=== PATIENT | male | born 1995 | race Caucasian/White ===

== ENCOUNTER 2018-02-24 14:02 | Emergency (ER) | payer OTHER ==
[2018-02-24] MEDS ORDERED: CYCLOBENZAPRINE 10 MG TAB PO ONE (15:00)
[2018-02-24] MEDS ORDERED: DEXAMETHASONE 4 MG TAB PO ONE (15:00)
[2018-02-24] MEDS ORDERED: OXYCODONE/APAP 5/325 TAB PO ONE (15:00)
--- NOTE | 2018-02-24 15:00 | EDPHY ---
General Time Seen by Provider: 02/24/18 14:48 Narrative: CHIEF COMPLAINT: Low back pain HISTORY OF PRESENT ILLNESS: Patient presents with complaints of low back pain that started while skating at a skate park today approximately 90 minutes ago. He states that he twisted awkwardly and felt a sudden onset of pain in the lower back. Severe pain that has been constant and making ambulation difficult due to pain. Radiates into right buttock and anterior thigh. No numbness, paresthesia, weakness, incontinence. No direct trauma. Previous incidents of this several times in the past with spontaneous resolution. No prior lumbar surgeries. Has been seen by chiropractors in the past. No other associate complaints or modifying factors. ESTABLISHED ORTHOPEDIST: None REVIEW OF SYSTEMS: Ten systems reviewed and are negative unless otherwise noted in the HPI PAST MEDICAL HISTORY: Low back strains PAST SURGICAL HISTORY: No recent surgery SOCIAL HISTORY: non smoker. recently graduated college. lives here independently FAMILY HISTORY: non-contributory EXAMINATION General Appearance: Alert, no distress HEENT: normocephalic and atraumatic. PERRL Cardiovascular: Pulses normal throughout with symmetric radial and DP pules. Brisk cap refill Back: no midline tenderness at any level. lumbar soft tissue tenderness right of midline Neurological: A&O, sensory symmetric, knee, ankle and great toe strength symmetric. patellar reflexes 2+ symmetrically Skin: Warm and dry, no rash. no petechia. no puncture or laceration Extremities: Nontender, no pedal edema Psychiatric: Mood and affect normal DIFFERENTIAL DIAGNOSES: Including but not limited to disc bulge, disc herniation, lumbar fracture, lumbar strain, acute cord compression, spondylolisthesis MDM: 3:00 p.m. Acute low back pain with right-sided sciatic pain. Radiculopathy to the point of the anterior thigh only. No evidence of acute cord compression or cauda equina. Fully neuro intact distally with excellent strength of the great toe and ankles. I have ordered x-ray due to the trauma to the pain. I have ordered Flexeril and pain medication in addition to Decadron 3:45 p.m. Patient re-evaluated. He just received his medication. I reviewed the x-ray and I do not appreciate any acute findings 4:30 p.m. plain film read as negative by radiologist. patient re evaluated and feeling much better. ambulating without difficulty. would like to go home. discharged home in stable condition with referral information, symptomatic medications, back exercises and ED precautions. His mother will drive him home. SUPERVISION: This patient was independently evaluated without direct involvement of or examination by the attending physician. ED Precautions: Worsening pain. Erythema, edema, cyanosis, pallor, paresthesia or anesthesia. - History Smoking Status: Never smoked - Objective Vital Signs: Initial Vital Signs Temperature (C) 98.1 F 02/24/18 14:07 Heart Rate 80 02/24/18 14:07 Respiratory Rate 16 02/24/18 14:07 Blood Pressure 133/78 H 02/24/18 14:07 O2 Sat (%) 96 02/24/18 14:07 O2 Delivery Mode Room Air Allergies/Adverse Reactions: No Known Allergies Allergy (Unverified 02/24/18 14:07) Home Medications: Medication Instructions Recorded Cyclobenzaprine [Flexeril 10 MG 10 mg PO TID PRN #7 tab 02/24/18 (*)] Ibuprofen 02/24/18 methylPREDNISolone [Medrol Dose 1 each PO AD #1 packet 02/24/18 Arrno] oxyCODONE HCL/ACETAMINOPHEN 1 each PO Q4-6PRN PRN #7 tablet 02/24/18 [Percocet 5-325 mg Tablet] Medications Given: Discontinued Medications Cyclobenzaprine HCl (Flexeril) 10 mg PO EDNOW ONE Stop: 02/24/18 15:01 Last Admin: 02/24/18 15:23 Dose: 10 mg Dexamethasone (Decadron) 8 mg PO EDNOW ONE Stop: 02/24/18 15:01 Last Admin: 02/24/18 15:22 Dose: 8 mg Oxycodone/Acetaminophen (Percocet 5/325) 2 tab PO EDNOW ONE Stop: 02/24/18 15:01 Last Admin: 02/24/18 15:23 Dose: 2 tab Departure - Departure Disposition: Home, Routine, Self-Care Clinical Impression: Lumbar radiculopathy, acute Acute low back pain Qualifiers: Back pain laterality: right Sciatica presence: with sciatica Sciatica laterality: sciatica of right side Qualified Code(s): M54.41 - Lumbago with sciatica, right side Condition: Good Instructions: Sciatica (ED), Lumbar Radiculopathy (ED), Lower Back Exercises ( ED) Additional Instructions: 1. Medications as prescribed to completion 2. Contact primary care physician as provided to established as a new patient 3. Contact neurosurgeon on-call for outpatient follow-up for back pain 4. ED precautions for worsening pain, weakness, numbness, incontinence of bowel or bladder Referrals: Juan Carlos Mondragon MD [Medical Doctor] - As per Instructions Tian Nettles MD [Medical Doctor] - As per Instructions Stand Alone Forms: Airline Excuse Prescriptions: Cyclobenzaprine [Flexeril 10 MG (*)] 10 mg PO TID PRN #7 tab PRN Reason: Spasms methylPREDNISolone [Medrol Dose Arron] 1 each PO AD #1 packet oxyCODONE HCL/ACETAMINOPHEN [Percocet 5-325 mg Tablet] 1 each PO Q4-6PRN PRN #7 tablet PRN Reason: Pain, Breakthrough
[2018-02-24 17:07] VITALS: BP 134/74
== END 2018-02-24 17:02 | disposition home or self-care (01) ==
DX: M54.41 Lumbago with sciatica, right side (principal); M54.16 Radiculopathy, lumbar region

== ENCOUNTER 2018-04-11 14:14 | Emergency (ER) | payer OTHER ==
--- NOTE | 2018-04-11 14:35 | EDPHY ---
HPI/HX/ROS/PE/MDM Narrative: CHIEF COMPLAINT: Nose bleed HPI: The patient is a 22 y/o male with a history of frequent nose bleeds complaining of a nose bleed for the past 3-4 hours. He has had frequent nose bleeds since he was 2 years old, which his ENT physician believes is due to a mildly deviated septum and superficial blood vessels. On Thursday, 2 days ago, his right nares was cauterized by his ENT in [place] as he was having a nose bleed every day for the past week. Today he woke up at 04:00, 10 hours ago, with a nose bleed but he was able to stop this. Around 3-4 hours ago he was on a bike ride when the nose bleed returned; he denies recently injuring his nose. He noticed that blood was coming from both nares and was more intense than prior nose bleeds as his bike was covered in blood. Currently he is lightheaded and nauseous. Denies history of lab work to determine clotting disorders or history of other bleeding problems. His father has essential thrombocytopenia which has progressed to myelofibrosis. Denies headache, chest pain, shortness of breath, urinary or bowel complaints, fever, numbness, paresthesias. REVIEW OF SYSTEMS: Aside from elements discussed in the HPI, a comprehensive 10-point review of systems was reviewed and is negative. PMH: Frequent nose bleeds requiring cauterization SOCIAL HISTORY: Parents at bedside, employed, lives in [place] PHYSICAL EXAM: General: Patient is alert, in no acute distress. ENT: Eyes are normal to inspection. Clotted blood in both nares otherwise, normal inspection. Neck: Normal inspection. Full range of motion. Respiratory: No respiratory distress. Breath sounds normal bilaterally. Cardiovascular: Regular rate and rhythm. Strong peripheral pulses. Normal cap refill. Abdomen: The abdomen is nontender to palpation. There are no peritoneal signs. There are normal bowel sounds. Back: Normal to inspection. No tenderness to palpation. Skin: Normal color. No rash. Warm and dry. Extremities: Normal appearance. Full range of motion. Neuro: Oriented x3. Normal motor function. Normal sensory function. ED Course: 1430: I have discussed TXA risks and benefits as well as other measures to stop the bilateral epistaxis. Patient is comfortable with receiving TXA and having lab work performed. 1506: Reassessed patient and performed epistaxis control. Procedure: Epistaxis control. Indication: nosebleed not controlled by direct pressure. Risks, benefits, alternatives discussed with patient and consent obtained. The unilateral anterior epistaxis was identified. The patient was treated with TXA soaked cotton swabs in both nares. Following the procedure the patient was re- examined and the bleeding was not well controlled with TXA. The procedure was performed by myself, Dr. Rojas. 1538: Reassessed patient the bleeding is not controlled with TXA; I assessed patient's nares with scope - the area of cautery is easily identifiable and there is diffuse mild oozing without clear single source of bleeding. I am hesitant to perform additional cautery as this tissue is already significantly friable. Merocel packing placed in right nares. 1635: Reassessed patient, he still has some bleeding from the right nares. I removed the Merocel packing and placed a rhino rocket. 1700: Reassessed patient, there is mild dripping of blood from the right nares. I have advised the patient to keep the packing in place and follow up with his ENT tomorrow morning. I have also given him a take home pack of Ativan; his first dose was given prior to discharge. Return precautions provided; patient is comfortable with this plan. He appears somewhat uncomfortable and agitated secondary to the nasal balloon, which is to be expected. His mother asked if he could get a dose of ativan and additional meds to help him sleep. We had a long discussion regarding risks of sedative medications in the setting of potential airway issues. He understands risks and will be very careful with use. MDM: I see no signs of hemorrhagic shock, infection, trauma or clotting disorder. - Data Points Laboratory Results: Laboratory Results 04/11/18 14:49 04/11/18 14:49 04/11/18 04/11/18 04/11/18 14:49 14:49 14:49 WBC 12.33 10^3/uL H 10^3/uL (3.80-9.50) RBC 5.54 10^6/uL 10^6/uL (4.40-6.38) Hgb 15.4 g/dL g/dL (13.7-17.5) Hct 45.3 % % (40.0-51.0) MCV 81.8 fL fL (81.5-99.8) MCH 27.8 pg L pg (27.9-34.1) MCHC 34.0 g/dL g/dL (32.4-36.7) RDW 12.7 % % (11.5-15.2) Plt Count 214 10^3/uL 10^3/uL (150-400) MPV 10.1 fL fL (8.7-11.7) Neut % (Auto) 67.3 % % (39.3-74.2) Lymph % (Auto) 18.5 % % (15.0-45.0) [place] % (Auto) 10.2 % % (4.5-13.0) Eos % (Auto) 3.0 % % (0.6-7.6) Baso % (Auto) 0.7 % % (0.3-1.7) Nucleat RBC Rel Count 0.0 % % (0.0-0.2) Absolute Neuts (auto) 8.29 10^3/uL H 10^3/uL (1.70-6.50) Absolute Lymphs (auto) 2.28 10^3/uL 10^3/uL (1.00-3.00) Absolute Monos (auto) 1.26 10^3/uL H 10^3/uL (0.30-0.80) Absolute Eos (auto) 0.37 10^3/uL 10^3/uL (0.03-0.40) Absolute Basos (auto) 0.09 10^3/uL 10^3/uL (0.02-0.10) Absolute Nucleated RBC 0.00 10^3/uL 10^3/uL (0-0.01) Immature Gran % 0.3 % % (0.0-1.1) Immature Gran # 0.04 10^3/uL 10^3/uL (0.00-0.10) PT 14.1 SEC SEC (12.0-15.0) INR 1.07 (0.83-1.16) Sodium 138 mEq/L mEq/L (135-145) Potassium 4.4 mEq/L mEq/L (3.3-5.0) Chloride 105 mEq/L mEq/L (97-110) Carbon Dioxide 28 mEq/l mEq/l (22-31) Anion Gap 5 mEq/L L mEq/L (8-16) BUN 20 mg/dL mg/dL (7-23) Creatinine 1.1 mg/dL mg/dL (0.7-1.3) Estimated GFR > 60 Glucose 82 mg/dL mg/dL (70-100) Calcium 10.0 mg/dL mg/dL (8.5-10.4) Medications Given: Discontinued Medications Sodium Chloride (Ns) 1,000 mls @ 0 mls/hr IV EDNOW ONE; Wide Open PRN Reason: Protocol Stop: 04/11/18 14:37 Last Admin: 04/11/18 14:45 Dose: 1,000 mls Tranexamic Acid (Cyklokapron) 500 mg TP EDNOW ONE Stop: 04/11/18 14:37 Last Admin: 04/11/18 14:56 Dose: 500 mg General Time Seen by Provider: 04/11/18 14:27 Initial Vital Signs: Initial Vital Signs Temperature (C) 37 C 04/11/18 14:17 Heart Rate 90 04/11/18 14:17 Respiratory Rate 18 04/11/18 14:17 Blood Pressure 142/87 H 04/11/18 14:17 O2 Sat (%) 96 04/11/18 14:17 O2 Delivery Mode Room Air Allergies/Adverse Reactions: No Known Allergies Allergy (Verified 04/11/18 14:16) Home Medications: Medication Instructions Recorded Mupirocin 2% 04/11/18 Departure - Departure Disposition: Home, Routine, Self-Care Clinical Impression: Acute anterior epistaxis Condition: Good Instructions: Nosebleed (ED) Additional Instructions: Follow up with your ENT in [place] within 72 hours. Keep packing in place until this time. Take Ativan as prescribed. I recommend having lab work performed to determine if you have a clotting factor , like your father. Return to emergency department for fever, recurrence of bleeding, packing dislodgment or other concerns. Referrals: Yvon Doty [Non Staff Provider ()] - As per Instructions Report Scribed for: Vivek Rojas Report Scribed by: Lynette Alcaraz Date of Report: 04/11/18 Time of Report: 14:36 Physician Review and Approval Statement: Portions of this note were transcribed by an ED scribe. I personally performed the history, physical exam, and medical decision making; and confirm the accuracy of the information in the transcribed note.
[2018-04-11] MEDS ORDERED: TRANEXAMIC ACID 1,000 MG/10 ML VIAL TP ONE (14:36)
[2018-04-11] MEDS ORDERED: NS 1,000 ML IV ONE (14:36)
[2018-04-11 15:02] LABS: PLATELET COUNT 214 10^3/uL (150-400)
[2018-04-11 15:13] LABS: INR 1.07 (0.83-1.16); PROTIME(PATIENT) 14.1 SEC (12.0-15.0)
[2018-04-11] MEDS ORDERED: LORazepam 1 MG TAB PO ONE (17:03)
[2018-04-11] MEDS ORDERED: LORAZEPAM 1 MG PREPACK#4 BTL TAKEHOME ONE (17:04)
[2018-04-11 17:29] VITALS: BP 143/89
== END 2018-04-11 17:26 | disposition home or self-care (01) ==
PROC: 2Y41X5Z Packing of Nasal Region using Packing Material (ICD-10-PCS; principal; 2018-04-11)
DX: R04.0 Epistaxis (principal); E86.9 Volume depletion, unspecified